=== PATIENT | male | born 1965 | race Two or more races ===

== ENCOUNTER 2018-08-03 18:46 | Inpatient (IN) | payer OTHER ==
[~2018-08-03] VITALS: Ht 185.4 cm; Wt 76.2 kg
[2018-08-03] MEDS ORDERED: ONDANSETRON HCL/PF 4 MG/2 ML VIAL ONE (20:49)
[2018-08-03] MEDS ORDERED: VANCOMYCIN 1 GM VIAL ONE (20:49)
[2018-08-03] MEDS ORDERED: MORPHINE SULFATE INJ 4 MG/ML DISP.SYRIN ONE (20:49)
[2018-08-03 20:52] LABS: BASOPHILS % (AUTO) 0.6 % (0.0-2.0); EOSINOPHILS % (AUTO) 0.7 % (0.0-6.0); HEMATOCRIT 38 % (39-51); HEMOGLOBIN 12.7 g/dL (13.5-17.5); LYMPHOCYTES # (AUTO) 1.6 /CMM (0.8-4.8); LYMPHOCYTES % (AUTO) 19.4 % (20.0-44.0); MEAN CORPUSCULAR HGB CONC 33 g/dl (31.0-36.0); MEAN CORPUSCULAR VOLUME 83 fL (80-96); MONOCYTES # (AUTO) 0.6 /CMM (0.1-1.30); MONOCYTES % (AUTO) 7.2 % (2.0-12.0); NEUTROPHILS # (AUTO) 6.1 /CMM (1.8-8.9); NEUTROPHILS % (AUTO) 72.1 % (43.0-81.0); PLATELET COUNT (AUTO) 186 /CMM (150-450); RED BLOOD CELL COUNT(AUTO) 4.61 MIL/uL (4.5-6.0); WHITE BLOOD COUNT (AUTO) 8.5 K/uL (4.3-11.0)
[2018-08-03] MEDS ORDERED: CEFTRIAXONE 1GM BAG (ER ONLY) 50 ML IV ONE ×2 (21:00→21:03)
[2018-08-03] MEDS ORDERED: IV NS 0.9% 1,000 ML BAG IV ONE (21:00)
[2018-08-03] MEDS ORDERED: VANCOMYCIN 1 GM in IV D5W 250 ML IV ONE (21:00)
[2018-08-03] MEDS ORDERED: MORPHINE SULFATE INJ 2 MG/ML DISP.SYRIN IV ONE (21:00)
[2018-08-03] MEDS ORDERED: ONDANSETRON HCL/PF 4 MG/2 ML VIAL IVP ONE (21:00)
[2018-08-03 21:04] LABS: CALCIUM, SERUM 8.8 mg/dL (8.5-10.1); CARBON DIOXIDE 27 mmol/L (21-32); CHLORIDE 99 mmol/L (98-107); CREATININE 1.1 mg/dL (0.6-1.3); GLUCOSE 122 mg/dL (74-106); SODIUM SERUM 134 mmol/L (136-145); UREA NITROGEN, BLOOD 16 mg/dL (7-18)
[2018-08-03 21:10] LABS: ALANINE AMINOTRANSFERASE 88 U/L (12-78); ALBUMIN 3.6 g/dL (3.4-5.0); ALKALINE PHOSPHATASE 65 U/L (46-116); ASPARTATE AMINOTRANSFERASE 40 U/L (15-37); BILIRUBIN,DIRECT 0.2 mg/dL (0.0-0.2); BILIRUBIN,TOTAL 0.8 mg/dL (0.2-1.0)
[2018-08-03] MEDS ORDERED: HYDROMORPHONE 1 MG/1 ML DISP.SYRIN ONE (21:16)
[2018-08-03] MEDS ORDERED: HYDROMORPHONE INJ 2 MG/ML DISP.SYRIN IV ONE (21:30)
[2018-08-03 21:43] LABS: APPEARANCE,URINE SL CLOUDY (CLEAR); BILIRUBIN,URINE 1+ (NEGATIVE); BLOOD, URINE NEGATIVE Ery/uL (NEGATIVE); COLOR,URINE DARK YELLO (YELLOW); KETONES,URINE 1+ (NEGATIVE); LEUKOCYTE ESTERASE ,URINE NEGATIVE (NEGATIVE); NITRITE, URINE NEGATIVE (NEGATIVE); PROTEIN,URINE 1+ mg/dl (NEGATIVE); UGLUCOSE NEGATIVE (NEGATIVE)
[2018-08-03 21:52] LABS: BACTERIA,URINE Few /HPF (None Seen); SQUAMOUS EPITHELIAL CELL,UR Many /HPF (None Seen)
[2018-08-03 21:53] LABS: RBC,URINE 0-2 /HPF (0-2)
[2018-08-03 21:55] LABS: HYALINE CASTS, URINE Rare /LPF (None Seen)
[2018-08-03 23:00] VITALS: BP 137/73
[2018-08-03] MEDS ORDERED: ONDANSETRON HCL/PF 4 MG/2 ML VIAL IVP PRN (23:30)
[2018-08-03] MEDS ORDERED: MAG HYDROX/AL HYDROX/SIMETH 30 ML UDC PO PRN (23:30)
[2018-08-03] MEDS ORDERED: Z GUARD REMEDY 2 OZ OINT TP PRN (23:30)
[2018-08-03] MEDS ORDERED: MAGNESIUM HYDROXIDE 30 ML UDC PO PRN (23:30)
[2018-08-03] MEDS ORDERED: ACETAMINOPHEN 325 MG TABLET PO PRN (23:30)
[2018-08-04 00:12] VITALS: BP_SYST 128; BP_SYST 153; BP_DIAS 68; BP_DIAS 85
[2018-08-04] MEDS: MORPHINE SULFATE INJ 2 MG/ML DISP.SYRIN IV PRN ×4 (00:37→17:10)
[2018-08-04] MEDS: IV NS 0.9% 1,000 ML IV PRN ×2 (00:38→22:48)
[2018-08-04 07:36] LABS: BASOPHILS % (AUTO) 0.4 % (0.0-2.0); EOSINOPHILS % (AUTO) 2.3 % (0.0-6.0); HEMATOCRIT 33 % (39-51); HEMOGLOBIN 11.1 g/dL (13.5-17.5); LYMPHOCYTES # (AUTO) 1.2 /CMM (0.8-4.8); LYMPHOCYTES % (AUTO) 18.3 % (20.0-44.0); MEAN CORPUSCULAR HGB CONC 33 g/dl (31.0-36.0); MEAN CORPUSCULAR VOLUME 83 fL (80-96); MONOCYTES # (AUTO) 0.5 /CMM (0.1-1.30); MONOCYTES % (AUTO) 7.7 % (2.0-12.0); NEUTROPHILS # (AUTO) 4.8 /CMM (1.8-8.9); NEUTROPHILS % (AUTO) 71.3 % (43.0-81.0); PLATELET COUNT (AUTO) 143 /CMM (150-450); RED BLOOD CELL COUNT(AUTO) 4.04 MIL/uL (4.5-6.0); WHITE BLOOD COUNT (AUTO) 6.7 K/uL (4.3-11.0)
[2018-08-04 07:53] LABS: ALBUMIN 2.8 g/dL (3.4-5.0); BILIRUBIN,DIRECT 0.1 mg/dL (0.0-0.2); BILIRUBIN,TOTAL 0.5 mg/dL (0.2-1.0); CALCIUM, SERUM 7.8 mg/dL (8.5-10.1); CREATININE 0.7 mg/dL (0.6-1.3); MAGNESIUM 1.6 mg/dL (1.8-2.4); PHOSPHORUS 2.7 mg/dL (2.5-4.9); POTASSIUM 3.6 mmol/L (3.5-5.1); TOTAL PROTEIN, SERUM 7.2 g/dL (6.4-8.2)
[2018-08-04 08:07] VITALS: BP 123/76
[2018-08-04 08:12] LABS: THYROID STIMULATING HORMONE 2.941 uIU/mL (0.358-3.74)
[2018-08-04] MEDS ORDERED: FEE PK DOSING 1 MIN EA MC ONE (08:29)
[2018-08-04] MEDS: VANCOMYCIN 1 GM in IV D5W 250 ML IV SCH ×2 (08:38→16:45)
[2018-08-04] MEDS: HYDROCODONE/APAP 5/325MG 1 EACH TABLET PO PRN ×3 (08:46→21:43)
[2018-08-04] MEDS: Magnesium 1GM/D5W 100ML PREMIX 100 ML IV SCH ×2 (11:27→12:28)
[2018-08-04 15:58] VITALS: BP 108/67
[2018-08-04 19:57] VITALS: BP 115/74
[2018-08-04 20:00] VITALS: BP 115/74
[2018-08-04] MEDS: CEFTRIAXONE 1 G in IV D5W 50 ML IV SCH (22:43)
[2018-08-05] MEDS: MORPHINE SULFATE INJ 2 MG/ML DISP.SYRIN IV PRN ×2 (01:03→19:47)
[2018-08-05] MEDS: VANCOMYCIN 1 GM in IV D5W 250 ML IV SCH ×3 (01:04→16:17)
[2018-08-05 04:08] LABS: *BASOS 0 % (Not Estab.); *EOS 3 % (Not Estab.); *EOS, ABSOLUTE 0.2 x10E3/uL (0.0-0.4); *HCT 32.1 % (37.5-51.0); *HGB 10.7 g/dL (13.0-17.7); *IMMATURE GRANULOCYTES 0 % (Not Estab.); *LYMPHOCYTES 19 % (Not Estab.); *LYMPHS, ABSOLUTE 1.3 x10E3/uL (0.7-3.1); *MCH 26.8 pg (26.6-33.0); *MCHC 33.3 g/dL (31.5-35.7); *MCV 80 fL (79-97); *MONOCYTES 7 % (Not Estab.); *MONOS, ABSOLUTE 0.5 x10E3/uL (0.1-0.9); *NEUTROPHILS 71 % (Not Estab.); *NEUTROPHILS, ABSOLUTE 4.8 x10E3/uL (1.4-7.0); *PLT 156 x10E3/uL (150-379); *RDW 15.6 % (12.3-15.4)
[2018-08-05 08:00] VITALS: BP 104/56
[2018-08-05] MEDS: HYDROCODONE/APAP 5/325MG 1 EACH TABLET PO PRN ×2 (08:18→16:18)
[2018-08-05 08:21] VITALS: BP 104/56
[2018-08-05 08:38] LABS: BASOPHILS % (AUTO) 0.4 % (0.0-2.0); EOSINOPHILS % (AUTO) 6.4 % (0.0-6.0); HEMATOCRIT 35 % (39-51); HEMOGLOBIN 11.4 g/dL (13.5-17.5); LYMPHOCYTES # (AUTO) 1.1 /CMM (0.8-4.8); LYMPHOCYTES % (AUTO) 22.4 % (20.0-44.0); MEAN CORPUSCULAR HGB CONC 33 g/dl (31.0-36.0); MEAN CORPUSCULAR VOLUME 83 fL (80-96); MONOCYTES # (AUTO) 0.6 /CMM (0.1-1.30); MONOCYTES % (AUTO) 10.8 % (2.0-12.0); NEUTROPHILS # (AUTO) 3.1 /CMM (1.8-8.9); PLATELET COUNT (AUTO) 154 /CMM (150-450); RED BLOOD CELL COUNT(AUTO) 4.17 MIL/uL (4.5-6.0); WHITE BLOOD COUNT (AUTO) 5.1 K/uL (4.3-11.0)
[2018-08-05 08:50] LABS: CALCIUM, SERUM 7.9 mg/dL (8.5-10.1); CREATININE 0.8 mg/dL (0.6-1.3); MAGNESIUM 1.9 mg/dL (1.8-2.4); POTASSIUM 3.9 mmol/L (3.5-5.1)
[2018-08-05] MEDS: ENOXAPARIN SODIUM 40 MG/0.4 ML DISP.SYRIN SQ SCH (09:44)
[2018-08-05 11:09] LABS: *% CD 4 POS. LYMPH 7.5 % (30.8-58.5); *% CD 8 POS. LYMPH 76.4 % (12.0-35.5); *ABSOLUTE CD 4 HELPER 98 /uL (359-1519); *ABSOLUTE CD 8 SUPPRESSOR 993 /uL (109-897)
[2018-08-05 16:00] VITALS: BP 110/66
[2018-08-05 16:17] VITALS: BP 110/66
[2018-08-05 20:00] VITALS: BP 115/66
[2018-08-05] MEDS: CEFTRIAXONE 1 G in IV D5W 50 ML IV SCH (20:13)
[2018-08-05 21:20] VITALS: BP 115/66
[2018-08-06] MEDS: VANCOMYCIN 1 GM in IV D5W 250 ML IV SCH ×2 (00:32→09:01)
[2018-08-06] MEDS: MORPHINE SULFATE INJ 2 MG/ML DISP.SYRIN IV PRN ×2 (03:45→09:02)
[2018-08-06] MEDS: IV NS 0.9% 1,000 ML IV PRN (03:49)
[2018-08-06 06:27] LABS: BASOPHILS % (AUTO) 0.6 % (0.0-2.0); EOSINOPHILS % (AUTO) 9.6 % (0.0-6.0); HEMATOCRIT 33 % (39-51); HEMOGLOBIN 10.9 g/dL (13.5-17.5); LYMPHOCYTES # (AUTO) 1.4 /CMM (0.8-4.8); LYMPHOCYTES % (AUTO) 34.1 % (20.0-44.0); MEAN CORPUSCULAR HGB CONC 33 g/dl (31.0-36.0); MEAN CORPUSCULAR VOLUME 82 fL (80-96); MONOCYTES # (AUTO) 0.5 /CMM (0.1-1.30); NEUTROPHILS # (AUTO) 1.8 /CMM (1.8-8.9); NEUTROPHILS % (AUTO) 43.7 % (43.0-81.0); PLATELET COUNT (AUTO) 159 /CMM (150-450); RED BLOOD CELL COUNT(AUTO) 3.97 MIL/uL (4.5-6.0); WHITE BLOOD COUNT (AUTO) 4.1 K/uL (4.3-11.0)
[2018-08-06 06:57] LABS: CREATININE 0.6 mg/dL (0.6-1.3); MAGNESIUM 1.9 mg/dL (1.8-2.4); PHOSPHORUS 3.3 mg/dL (2.5-4.9)
[2018-08-06 08:00] VITALS: BP 119/71
[2018-08-06] MEDS: ENOXAPARIN SODIUM 40 MG/0.4 ML DISP.SYRIN SQ SCH (09:07)
[2018-08-06] MEDS ORDERED: HYDR-4384 PO (09:42)
[2018-08-06] MEDS ORDERED: CEPH-570 PO (09:42)
[2018-08-06 16:00] VITALS: BP 121/71
[2018-08-06] MEDS ORDERED: CEPHALEXIN MONOHYDRATE 250 MG CAPSULE PO SCH (21:00)
== END 2018-08-06 17:30 | disposition home or self-care (01) | DRG 383 ==
LOC: ER 18:48 → MED 22:25
PROVIDERS: ADMIT Nurse Practitioner Acute Care; ATTEND Student in an Organized Health Care Education/Training Program
DX: L03.116 Cellulitis of left lower limb (principal); E87.1 Hypo-osmolality and hyponatremia; K76.0 Fatty (change of) liver, not elsewhere classified; D63.8 Anemia in other chronic diseases classified elsewhere; F15.90 Other stimulant use, unspecified, uncomplicated; Z59.0 Homelessness; Z72.0 Tobacco use; F10.10 Alcohol abuse, uncomplicated; Y90.9 Presence of alcohol in blood, level not specified; Z91.14 Patient's other noncompliance with medication regimen; Z83.3 Family history of diabetes mellitus; N20.0 Calculus of kidney; E86.1 Hypovolemia
CPT/HCPCS: 36415; 71045-TC; 76700-TC; 80048-TC; 80061-TC; 80076-TC; 80202-TC; 81000-TC; 83605-TC; 83735-TC; 84100-TC; 84443-TC; 84484-TC; 85025-TC; 85730-TC; 86360; 87040-TC; 87081-TC; 87086-TC; 97110-TC; 97116-TC; 97530-TC; G0378; J0696; J1170; J1650; J2270; J2405; J3370; J3475; J7030; J7060

== ENCOUNTER 2020-11-07 15:37 | Emergency (ER) | payer MEDICAID, OTHER ==
[~2020-11-07] VITALS: Ht 185.4 cm; Wt 68.0 kg
[~2020-11-07 15:37] MED LIST: CEPH-570 PO; HYDR-4384 PO
--- NOTE | 2020-11-07 16:00 | NUR ---
SENT HERE BY [facility] FOR FURTHER EVAL OF FOOT BLISTERS AND WAS NOTED TO BE CONFUSED. PT ALERT AND ORIENTEDX2. NON LABORED BREATHING.
--- NOTE | 2020-11-07 16:05 | NUR ---
BLOOD SENT TO LAB
[2020-11-07 16:19] LABS: BASOPHILS % (AUTO) 0.6 % (0.0-2.0); EOSINOPHILS % (AUTO) 1.6 % (0.0-6.0); HEMATOCRIT 37 % (39-51); HEMOGLOBIN 12.3 g/dL (13.5-17.5); LYMPHOCYTES # (AUTO) 1.7 K/uL (0.8-4.8); LYMPHOCYTES % (AUTO) 27.4 % (20.0-44.0); MEAN CORPUSCULAR HGB CONC 33 g/dl (31.0-36.0); MEAN CORPUSCULAR VOLUME 86 fL (80-96); MONOCYTES # (AUTO) 0.7 K/uL (0.1-1.30); MONOCYTES % (AUTO) 11.8 % (2.0-12.0); NEUTROPHILS # (AUTO) 3.6 K/uL (1.8-8.9); NEUTROPHILS % (AUTO) 58.6 % (43.0-81.0); PLATELET COUNT (AUTO) 214 K/uL (150-450); RED BLOOD CELL COUNT(AUTO) 4.35 MIL/uL (4.5-6.0); WHITE BLOOD COUNT (AUTO) 6.2 K/uL (4.3-11.0)
[2020-11-07 16:27] LABS: CALCIUM, SERUM 8.9 mg/dL (8.5-10.1); CARBON DIOXIDE 22 mmol/L (21-32); CHLORIDE 99 mmol/L (98-107); CREATININE 1.2 mg/dL (0.6-1.3); GLUCOSE 117 mg/dL (74-106); SODIUM SERUM 136 mmol/L (136-145); UREA NITROGEN, BLOOD 15 mg/dL (7-18)
[2020-11-07 16:33] LABS: BILIRUBIN,TOTAL 0.9 mg/dL (0.2-1.0)
[2020-11-07 16:34] LABS: ACETAMINOPHEN < 2 ug/ml (10-30); ALANINE AMINOTRANSFERASE 115 U/L (12-78); ALBUMIN 4.2 g/dL (3.4-5.0); ALCOHOL, BLOOD 217 mg/dL (0-0); ALKALINE PHOSPHATASE 64 U/L (46-116); ASPARTATE AMINOTRANSFERASE 319 U/L (15-37); BILIRUBIN,DIRECT 0.4 mg/dL (0.0-0.2); TOTAL PROTEIN, SERUM 9.3 g/dL (6.4-8.2)
[2020-11-07 16:49] LABS: BILIRUBIN,URINE Negative (NEGATIVE); COLOR,URINE YELLOW (YELLOW); LEUKOCYTE ESTERASE ,URINE Negative (NEGATIVE); NITRITE, URINE Negative (NEGATIVE); PROTEIN,URINE Negative (NEGATIVE); UGLUCOSE Negative (NEGATIVE); UROBILINOGEN,URINE 0.2 EU/dL (0.2)
[2020-11-07 17:12] LABS: BACTERIA,URINE Rare /HPF (None Seen); SQUAMOUS EPITHELIAL CELL,UR Rare /HPF (None Seen); WBC,URINE 0-2 /HPF (0-3)
--- NOTE | 2020-11-07 18:14 | NUR ---
Patient discharged to home in stable condition. Written and verbal after care instructions given. Patient verbalizes understanding of instruction. Patient discharged on a wheelchair.
[2020-11-07 18:16] VITALS: BP 135/85
== END 2020-11-07 18:16 | disposition home or self-care (01) ==
LOC: ER 15:39
DX: R44.0 Auditory hallucinations (principal); R44.1 Visual hallucinations; F15.10 Other stimulant abuse, uncomplicated; F10.10 Alcohol abuse, uncomplicated; R31.9 Hematuria, unspecified; M79.672 Pain in left foot; D64.9 Anemia, unspecified; R94.5 Abnormal results of liver function studies; F17.200 Nicotine dependence, unspecified, uncomplicated; Z60.2 Problems related to living alone; Y90.7 Blood alcohol level of 200-239 mg/100 ml
CPT/HCPCS: 36415; 70450-TC; 71045-TC; 80048-TC; 80076-TC; 81001; 85025-TC; G0480